=== PATIENT | female | born 1985 | race African-American/Black ===

== ENCOUNTER 2019-09-04 08:02 | Emergency (ER) | payer MEDICAID, OTHER ==
[~2019-09-04] VITALS: Ht 175.3 cm; Wt 83.0 kg
[~2019-09-04 08:02] MED LIST: INSU3INS6 SUBCUT
[2019-09-04] MEDS ORDERED: SODIUM CHLORIDE 0.9% 1,000 ML IV ONE (08:33)
[2019-09-04 09:01] LABS: CLARITY URINE CLEAR (CLEAR); COLOR URINE YELLOW (YELLOW); KETONES URINE NEGATIVE (NEGATIVE); LEUKOCYTE ESTERASE URINE NEGATIVE (NEGATIVE); NITRITE URINE NEGATIVE (NEGATIVE); OCCULT BLOOD URINE NEGATIVE (NEGATIVE); PROTEIN URINE TRACE (NEGATIVE); SPECIFIC GRAVITY URINE 1.008 (1.005-1.030); UROBILINOGEN URINE 0.2 E.U./dL (0.2-1.0)
[2019-09-04 09:27] LABS: BASOPHILS % 0.8 % (0.0-2.0); EOSINOPHILS % 2.5 % (0.0-5.0); HEMATOCRIT. 36.7 % (36.0-48.0); LYMPHOCYTES % 13.5 % (20.0-50.0); MEAN CORPUSCULAR HEMOGLOBIN 27.9 pg (28.0-32.0); MEAN CORPUSCULAR VOLUME 85.1 fL (81.0-99.0); MEAN PLATELET VOLUME 7.3 fl (7.4-10.4); MONOCYTES % 4.9 % (2.0-8.0); NEUTROPHILS % 78.3 % (40.0-76.0); PLATELET 499 x1000/uL (130-400); RED BLOOD CELL COUNT 4.31 mill/uL (4.2-5.4); RED CELL DISTRIBUTION WIDTH 16.1 % (11.6-14.6)
[2019-09-04 09:33] LABS: CHLORIDE 104 mEq/L (98-107)
[2019-09-04] MEDS ORDERED: LORAZEPAM 2MG/ML CPJ IV ONE ×2 (09:45→11:00)
[2019-09-04 12:26] VITALS: BP 118/83
== END 2019-09-04 12:29 | disposition home or self-care (01) ==
LOC: ER 08:02
DX: R00.2 Palpitations (principal); E11.649 Type 2 diabetes mellitus with hypoglycemia without coma; F14.10 Cocaine abuse, uncomplicated; Z79.4 Long term (current) use of insulin
CPT/HCPCS: 36415; 71045; 80053; 81003; 81025; 82962; 85025; 93005; 96374; 96376; 99284; J2060; J7030

== ENCOUNTER 2021-02-06 10:15 | Inpatient (IN) | payer OTHER ==
[~2021-02-06] VITALS: Ht 175.3 cm; Wt 72.6 kg
[2021-02-06] MEDS ORDERED: ONDANSETRON HCL 4MG/2ML INJ IV STA (10:52)
[2021-02-06] MEDS ORDERED: MORPHINE SULFATE 4 MG/ML CPJ (NOT FOR IM USE) IV STA (10:52)
[2021-02-06] MEDS ORDERED: SODIUM CHLORIDE 0.9% 1,000 ML IV ONE (11:00)
[2021-02-06 12:09] LABS: BASOPHILS % 0.6 % (0.0-2.0); EOSINOPHILS % 0.3 % (0.0-5.0); HEMATOCRIT. 35.8 % (36.0-48.0); HEMOGLOBIN. 12.2 g/dL (12.0-16.0); LYMPHOCYTES % 7.6 % (20.0-50.0); MEAN CORPUSCULAR HEMOGLOBIN 28.8 pg (28.0-32.0); MEAN CORPUSCULAR VOLUME 84.4 fL (81.0-99.0); MEAN PLATELET VOLUME 7.5 fl (7.4-10.4); MONOCYTES % 4.4 % (2.0-8.0); NEUTROPHILS % 87.1 % (40.0-76.0); PLATELET 370 x1000/uL (130-400); RED BLOOD CELL COUNT 4.24 mill/uL (4.2-5.4); RED CELL DISTRIBUTION WIDTH 14.9 % (11.6-14.6)
[2021-02-06 12:18] LABS: CHLORIDE 97 mEq/L (98-107)
[2021-02-06 12:22] LABS: ETHANOL BLOOD < 10 mg/dL
[2021-02-06 12:24] LABS: BETA HYDROXYBUTYRATE 2.8 mMol/L (0.0-0.3)
[2021-02-06 12:25] LABS: HCG SCREEN NEGATIVE
[2021-02-06 12:27] LABS: PROTHROMBIN TIME 10.9 sec (9.6-11.0)
[2021-02-06] MEDS ORDERED: IOHEXOL-300 100 ML BOTTLE ONE (15:01)
[2021-02-06 17:26] LABS: CLARITY URINE CLOUDY (CLEAR); COLOR URINE YELLOW (YELLOW); KETONES URINE 3+ (NEGATIVE); LEUKOCYTE ESTERASE URINE NEGATIVE (NEGATIVE); NITRITE URINE NEGATIVE (NEGATIVE); OCCULT BLOOD URINE 1+ (NEGATIVE); PROTEIN URINE 1+ (NEGATIVE); SPECIFIC GRAVITY URINE 1.056 (1.005-1.030)
[2021-02-06 17:42] LABS: *AMPHETAMINES SCREEN URINE NEGATIVE (NEGATIVE); *BARBITURATES SCREEN URINE NEGATIVE (NEGATIVE); *BENZODIAZEPINES SCREEN URINE NEGATIVE (NEGATIVE); *COCAINE SCREEN URINE NEGATIVE (NEGATIVE)
[2021-02-06 17:43] LABS: METHADONE URINE SCREEN NEGATIVE (NEGATIVE); PHENCYCLIDINE URINE SCREEN NEGATIVE (NEGATIVE)
[2021-02-06] MEDS ORDERED: CLONIDINE 0.1MG TABLET PO PRN (17:45)
[2021-02-06] MEDS ORDERED: ACETAMINOPHEN 325MG TABLET PO PRN (17:45)
[2021-02-06] MEDS ORDERED: DOCUSATE SODIUM 100MG CAPSULE PO PRN (17:45)
[2021-02-06 17:48] LABS: OPIATES URINE SCREEN PRESUMTIVE POSITIVE (NEGATIVE)
[2021-02-06 17:49] LABS: CANNABINOID URINE SCREEN PRESUMTIVE POSITIVE (NEGATIVE)
[2021-02-06] MEDS ORDERED: LEVOFLOXACIN 500MG PREMIX 100 ML IV SCH (18:00)
[2021-02-06] MEDS: SODIUM CHLORIDE 0.9% 1,000 ML IV SCH (19:50)
[2021-02-06 23:54] VITALS: BP 158/94
[2021-02-07] MEDS ORDERED: DEXTROSE 50% WATER 50ML SYRINGE IV PRN (00:45)
[2021-02-07] MEDS: ONDANSETRON HCL 4MG/2ML INJ IV PRN ×3 (01:16→16:57)
[2021-02-07] MEDS: INSULIN LISPRO 100 UNITS/ML SUBCUT SCH ×4 (01:25→18:25)
[2021-02-07 04:00] VITALS: BP 113/66
[2021-02-07 05:25] LABS: CHLORIDE 100 mEq/L (98-107)
[2021-02-07 05:37] LABS: BASOPHILS % 0.7 % (0.0-2.0); EOSINOPHILS % 0.2 % (0.0-5.0); HEMATOCRIT. 35.5 % (36.0-48.0); HEMOGLOBIN. 12.2 g/dL (12.0-16.0); LYMPHOCYTES % 12.9 % (20.0-50.0); MEAN CORPUSCULAR HEMOGLOBIN 29.3 pg (28.0-32.0); MEAN CORPUSCULAR VOLUME 85.5 fL (81.0-99.0); MEAN PLATELET VOLUME 7.6 fl (7.4-10.4); MONOCYTES % 5.9 % (2.0-8.0); NEUTROPHILS % 80.3 % (40.0-76.0); PLATELET 378 x1000/uL (130-400); RED BLOOD CELL COUNT 4.15 mill/uL (4.2-5.4)
[2021-02-07] MEDS: SODIUM CHLORIDE 0.9% 1,000 ML IV SCH (06:20)
[2021-02-07] MEDS: BLOOD SUGAR DIAGNOSTIC STRIP TEST SCH ×4 (06:42→21:00)
[2021-02-07] MEDS: KETOROLAC 30MG/ML VIAL IV PRN ×2 (09:24→16:57)
[2021-02-07] MEDS: PANTOPRAZOLE SODIUM 40 MG/VIAL IV SCH (12:30)
[2021-02-07] MEDS: METOCLOPRAMIDE HCL 10MG/2ML VIAL IV SCH ×3 (12:31→23:50)
[2021-02-07] MEDS: HYDROMORPHONE HCL/PF 2MG/ML CPJ IV PRN ×2 (12:34→18:49)
[2021-02-07 16:00] VITALS: BP 148/96
[2021-02-07] MEDS: LEVOFLOXACIN 500MG PREMIX 100 ML IV SCH (18:18)
[2021-02-07 20:00] VITALS: BP 102/65
[2021-02-08] VITALS: BP 129/79
[2021-02-08] MEDS: HYDROMORPHONE HCL/PF 2MG/ML CPJ IV PRN ×4 (00:42→20:29)
[2021-02-08 04:00] VITALS: BP 134/73
[2021-02-08] MEDS: METOCLOPRAMIDE HCL 10MG/2ML VIAL IV SCH ×3 (05:42→18:28)
[2021-02-08] MEDS: KETOROLAC 30MG/ML VIAL IV PRN (05:42)
[2021-02-08] MEDS: BLOOD SUGAR DIAGNOSTIC STRIP TEST SCH ×4 (06:44→21:30)
[2021-02-08 08:00] VITALS: BP 144/81
[2021-02-08] MEDS: PANTOPRAZOLE SODIUM 40 MG/VIAL IV SCH (08:41)
[2021-02-08] MEDS: ONDANSETRON HCL 4MG/2ML INJ IV PRN (08:41)
[2021-02-08] MEDS: INSULIN LISPRO 100 UNITS/ML SUBCUT SCH ×5 (08:49→21:00)
[2021-02-08] MEDS: SODIUM CHLORIDE 0.9% 1,000 ML IV SCH (09:45)
[2021-02-08 12:00] VITALS: BP 129/95
[2021-02-08] MEDS: LEVOFLOXACIN 500MG PREMIX 100 ML IV SCH (18:28)
[2021-02-08 20:00] VITALS: BP 132/95
[2021-02-08] MEDS: FAMOTIDINE 20MG/2ML VIAL IV SCH (21:32)
[2021-02-09] MEDS: METOCLOPRAMIDE HCL 10MG/2ML VIAL IV SCH ×5 (01:30→23:16)
[2021-02-09] MEDS: INSULIN LISPRO 100 UNITS/ML SUBCUT SCH ×5 (01:47→22:39)
[2021-02-09] MEDS: HYDROMORPHONE HCL/PF 2MG/ML CPJ IV PRN ×4 (02:16→22:38)
[2021-02-09] MEDS: BLOOD SUGAR DIAGNOSTIC STRIP TEST SCH ×4 (06:11→21:00)
[2021-02-09] MEDS: KETOROLAC 30MG/ML VIAL IV PRN ×2 (06:19→11:49)
[2021-02-09 08:00] VITALS: BP 136/92
[2021-02-09] MEDS: ONDANSETRON HCL 4MG/2ML INJ IV PRN ×3 (08:16→22:37)
[2021-02-09] MEDS: FAMOTIDINE 20MG/2ML VIAL IV SCH ×2 (09:50→22:37)
[2021-02-09 11:06] VITALS: BP 126/92
[2021-02-09 12:13] VITALS: BP 142/88
[2021-02-09] MEDS: LEVOFLOXACIN 500MG PREMIX 100 ML IV SCH (17:26)
[2021-02-09 20:00] VITALS: BP 146/94
[2021-02-10 01:39] VITALS: BP 112/75
[2021-02-10] MEDS: KETOROLAC 30MG/ML VIAL IV PRN ×2 (01:39→08:44)
[2021-02-10 04:46] VITALS: BP 124/82
[2021-02-10] MEDS: ONDANSETRON HCL 4MG/2ML INJ IV PRN (04:46)
[2021-02-10] MEDS: HYDROMORPHONE HCL/PF 2MG/ML CPJ IV PRN ×2 (04:46→11:25)
[2021-02-10] MEDS: METOCLOPRAMIDE HCL 10MG/2ML VIAL IV SCH ×2 (06:09→11:25)
[2021-02-10] MEDS: BLOOD SUGAR DIAGNOSTIC STRIP TEST SCH ×2 (07:43→11:40)
[2021-02-10] MEDS: INSULIN LISPRO 100 UNITS/ML SUBCUT SCH ×3 (07:43→12:13)
[2021-02-10 08:00] VITALS: BP 119/78
[2021-02-10] MEDS: FAMOTIDINE 20MG/2ML VIAL IV SCH (08:43)
[2021-02-10 12:00] VITALS: BP 127/84
[2021-02-10 12:42] VITALS: BP 127/78
== END 2021-02-10 14:53 | disposition home or self-care (01) | DRG 48 ==
LOC: ER 10:15 → MICUSO 16:44 → EDBEDREQ 16:50 → EDBEDREQTM 16:50 → 6EST 22:59
PROVIDERS: ADMIT Hospitalist; ATTEND Hospitalist
DX: E11.43 Type 2 diabetes mellitus with diabetic autonomic (poly)neuropathy (principal); K31.84 Gastroparesis; F12.90 Cannabis use, unspecified, uncomplicated; E86.0 Dehydration; Z79.4 Long term (current) use of insulin; Z79.899 Other long term (current) drug therapy; Z82.49 Family history of ischemic heart disease and other diseases of the circulatory system
CPT/HCPCS: 36415; 74177; 80053; 80305; 80320; 81003; 82010; 82962; 83036; 83605; 84484; 84703; 85025; 86850; 86900; 93005; 93970; 99285; C9113; J1170; J1815; J1885; J1956; J2270; J2405; J2765; J3490; J7030; Q9967; G0480